=== PATIENT | male | born 1945 | race Caucasian/White ===

== ENCOUNTER 2021-09-01 12:00 | Inpatient (IN) | payer MEDICARE, SELFPAY ==
[2021-09-01] VITALS (9 sets, daily range): BP systolic 79–133; BP diastolic 59–73; PULSE 59–84; RESP 12–18; TEMP 36.1–36.5; O2SAT 95–100; BMI 26.6
--- NOTE | ~2021-09-01 | US_ITS ---
EXAMINATION: US carotid duplex BI DATE: 09/01/2021 16:49 INDICATION: Syncopal episode TECHNIQUE: Grayscale, color Doppler, and pulsed Doppler images of the cervical carotid arteries were obtained. The degree of vessel stenosis is placed in one of the following categories: normal, <50%, 5 0-69%, >=70% but less than near-occlusion, near-occlusion, or total occlusion. Note that percent sten osis relative to normal distal artery lumen diameter is indirectly measured from velocity measurement s as described by Yaya, et al. Radiology 2003; 229:340-346. COMPARISON: None. FINDINGS: RIGHT: The right common carotid artery (CCA) peak systolic velocity (PSV) is 85.3 cm/s. The right internal c arotid artery (ICA) PSV is 82.0 cm/s. The right ICA end-diastolic velocity (EDV) is 14.9 cm/s. The ri [facility] ICA/CCA PSV ratio is 0.96. Grayscale and color Doppler images yield an estimate of less than 50% diameter reduction from plaque in the ICA. The external carotid artery (ECA) PSV is 109.5 cm/s. There is antegrade flow in the right vertebral artery. LEFT: The left CCA PSV is 79.7 cm/s. The left ICA PSV is 76.5 cm/s. The left ICA EDV is 17.1 cm/s. The left ICA/CCA PSV ratio is 0.96. Grayscale and color Doppler images yield an estimate of less than 50 % di ameter reduction from plaque in the ICA. The ECA PSV is 130.8 cm/s. There is antegrade flow in the le ft vertebral artery. IMPRESSION: 1. Less than 50% stenosis in the right internal carotid artery. 2. Less than 50% stenosis in the left internal carotid artery. Reviewed, dictated and finalized at [facility]. Reviewed, dictated and finalized at location A.
--- NOTE | ~2021-09-01 | CT_ITS ---
EXAMINATION: CT brain wo con DATE: 09/02/2021 09:23 INDICATION: Syncope. TECHNIQUE: Computed tomography (CT) of the head was performed without intravenous contrast. The mA wa s adjusted according to patient size. Iterative reconstruction technique was employed. The dose-lengt h product was 681.00 mGy-cm. COMPARISON: None FINDINGS: There is a small old infarct in left cerebellum. There is a large old infarct involving rig ht frontal, parietal, and temporal lobes, right insula, and the right basal ganglia in the expected d istribution of right middle cerebral artery. There are scattered areas of low attenuation in the left -sided cerebral white matter. There is no intracranial hemorrhage, acute infarction, or abnormal intr acranial mass lesion. There is mild ex vacuo dilatation of right lateral ventricle. There is mild muc osal thickening in the paranasal sinuses. There are likely changes of ocular lens replacement surgeri es. The mastoid air cells are normal. IMPRESSION: 1. Old infarct in the expected distribution of right middle cerebral artery. 2. Small old infarct in left cerebellum. 3. Mild nonspecific cerebral white matter disease, which likely represents chronic small vessel ische evelyn disease. Reviewed, dictated and finalized at location A. IMPRESSION: 1. Old infarct in the expected distribution of right middle cerebral artery. 2. Small old infarct in left cerebellum. 3. Mild nonspecific cerebral white matter disease, which likely represents wireless team member bernice small vessel ischemic disease.
--- NOTE | ~2021-09-01 | NM_ITS ---
EXAMINATION: NM tina stress w perfusion DATE: 09/04/2021 12:59 INDICATION: Urinary artery disease with ischemic cardiomyopathy. Syncope. TECHNIQUE: Rest images were obtained following intravenous administration of 10.7 mCi Tc99m tetrofosm in (Myoview). The patient was infused intravenously with Lexiscan (Regadenoson). Then, 29.82 mCi Tc99 m tetrofosmin (Myoview) was administered intravenously, and stress images were obtained. Data was rec onstructed into short axis and horizontal and vertical long axis SPECT images. Gated SPECT images wer e also obtained. COMPARISON: None. FINDINGS: Severe perfusion defect involving the apex, apical lateral, mid inferolateral segments and apical to basilar inferior segments. This is largely nonreversible infarct with mild partially revers ible ischemia at the apical lateral and mid inferolateral segments. Borderline left ventricular enlar gement with calculated end-diastolic volume of 176 mL. There is global hypokinesis with left ventricu lar ejection fraction measuring 20%. IMPRESSION: 1. Mild reversible ischemia at the apical lateral and mid inferolateral segments on the lateral marine n of a larger fixed infarct involving the apex, apical lateral, mid inferolateral and apical to basil ar inferior segments. 2. Borderline left ventricular enlargement with global hypokinesis and moderate to severely decreased left ventricular ejection fraction measuring 20%. Reviewed, dictated and finalized at location A. IMPRESSION: 1. Mild reversible ischemia at the apical lateral and mid inferolateral segment s on the lateral margin of a larger fixed infarct involving the apex, apical la teral, mid inferolateral and apical to basilar inferior segments. 2. Borderline left ventricular enlargement with global hypokinesis and moderate to severely decreased left ventricular ejection fraction measuring 20%.
--- NOTE | ~2021-09-01 | XR_ITS ---
EXAMINATION: XR chest 2V EXAM DATE: 09/01/2021 13:16 INDICATION: Syncope TECHNIQUE: Frontal and lateral projections of the chest obtained and reviewed. There is no prior gabriela dy for comparison. FINDINGS: The lungs are clear. There are no pleural effusions. The cardiomediastinal silhouette is within normal limits. There is no pneumothorax suspected. The bones and soft tissues are unremarkab le. IMPRESSION: No acute cardiopulmonary findings. Reviewed, dictated and finalized at location B.
--- NOTE | 2021-09-01 12:14 | ECG_ITS ---
Measurements Intervals [place] Rate: 82 P: 16 IA: 214 QRS: -64 QRSD: 151 T: -11 QT: 431 QTc: 506 Interpretive Statements SINUS RHYTHM WITH FIRST DEGREE AV BLOCK INTRAVENTRICULAR CONDUCTION DELAY [130+ ms QRS DURATION] LATERAL MYOCARDIAL INFARCTION , PROBABLY OLD [40+ ms Q WAVE AND/OR ST/T ABNORMALITY IN I/aVL/V5/V6] INFERIOR MYOCARDIAL INFARCTION , OF INDETERMINATE AGE WITH POSTERIOR EXTENSION [40+ ms Q WAVE AND/OR ST/T ABNORMALITY IN II/aV ABNORMAL ECG NO PREVIOUS ECG AVAILABLE FOR COMPARISON Electronically Signed On 09-02-2021 11:39:51 CDT by Cristian Walton M.D.
--- NOTE | 2021-09-01 12:29 | ED.SYNCOPE ---
HPI - Syncope General Chief Complaint: Syncope Stated Complaint: syncope, hypotensive Time Seen by Provider: 09/01/21 12:26 Source: patient, family, EMS and RN notes reviewed Mode of arrival: EMS Limitations: no limitations History of Present Illness HPI narrative: Patient is 76 years old white male was doing physical therapy today going up and down of 2 steps. Patient was exhausted but was asked to keep doing it. Is telling me that he pushed him hard to keep doing these 2 steps then he slumped over then placed on his wheelchair and was unresponsive for about 30 seconds. His was at the scene at that time. Patient denies any chest pain, shortness of breath or dizziness prior to the syncope. Patient also denies any new symptoms after improving. Currently patient is asymptomatic. History of stroke on June 2021 with a left hemiplegia, had Holter monitor last week which showed A. fib, patient never had A. fib before. Currently patient have chronic left shoulder pain which requires medication every now and then. Patient denies any fever, chills, nausea, vomiting, chest pain, shortness of breath, back pain, headache or new neurologic deficit. Related Data Allergies Allergy/AdvReac Type Severity Reaction Status Date / Time morphine Allergy Hypotension Verified 09/01/21 13:38 Review of Systems Review of Systems: CONSTITUTIONAL: Denies fever, chills, or sweats. EYES: Denies visual changes, redness, or discharge. ENT: Denies rhinorrhea, congestion, sore throat, or otalgia. CARDIOVASCULAR: Denies chest pain, palpitations, or edema. RESPIRATORY: Denies cough or dyspnea. GASTROINTESTINAL: Denies abdominal pain, nausea, vomiting, or diarrhea. GENITOURINARY: Denies dysuria or hematuria. SKIN: Denies rash or itching. MUSCULOSKELETAL: Denies back pain, joint pain, or myalgia. NEUROLOGIC: Denies headache, numbness, or weakness. PSYCHIATRIC: Denies anxiety or depression. Exam Narrative: General appearance: Well-developed, well-nourished Skin: Normal color Head: Normocephalic, nontraumatic Eyes: Clear conjunctiva ENT: Oropharynx normal, ears normal, nose normal Neck: Supple, nontender Chest and respiratory: Airway patent, no respiratory distress, no accessory muscle use Heart: Regular rate/rhythm Abdomen: Soft, nontender, no organomegaly, quiet bowel sounds Vascular: Normal peripheral pulses, normal capillary refill. Musculoskeletal: Normal range of motion, nontender back Neurologic: Alert and oriented ?3, left hemiplegia Course Course Emergency Course: Stable Vital Signs Vital signs: Vital Signs Temperature 36.1 C L 09/01/21 12:04 Pulse Rate 84 09/01/21 12:04 Respiratory Rate 18 09/01/21 12:04 Blood Pressure 83/62 L 09/01/21 12:04 Pulse Oximetry 95 09/01/21 12:04 Temperature 36.1 C L 09/01/21 12:04 Pulse Rate 60 09/01/21 15:41 Respiratory Rate 16 09/01/21 15:41 Blood Pressure 103/62 09/01/21 15:41 Pulse Oximetry 100 09/01/21 15:41 MDM - Syncope MDM Narrative Medical decision making narrative: Patient presents with syncope. Blood pressure was low on arrival to the emergency room. Hypotension is my concern versus cardiac arrhythmia. Differential Diagnosis Differential diagnosis: Likely syncope due to orthostatic hypotension, vasovagal syncope and other (Cardiac arrhythmia) Lab Data Result diagrams: 09/01/21 12:19 09/01/21 12:19 Labs: Lab Results 09/01/21 09/01/21 09/01/21 Range/Units 12:19 12:19 12:19 WBC 11.7 H (4.5-10.0) K/mm3 RBC 4.43 L (4.6-6.20) M/mm3 Hgb 13.9 L (14.0-18.0) g/dL Hct 43.9 (42.0-52.0) % MCV 99.1 (80-100) fl MCH 31.4 (26-34)
[2021-09-01 12:34] LABS: Basophils Absolute Auto 0.1 K/mm3 (0.0-0.1); Basophils Percent Auto 0.5 % (0.2-1.2); Eosinophils Absolute Auto 0.3 K/mm3 (0-0.3); Eosinophils Percent Auto 2.3 % (0-4.4); Hematocrit 43.9 % (42.0-52.0); Hemoglobin 13.9 g/dL (14.0-18.0); Immature Granulocyte Absolute 0.05 K/mm3 (0.00-0.031); Immature Granulocyte Percent A 0.4 % (0-0.5); Lymphocytes Absolute Auto 1.52 K/mm3 (0.9-3.2); Mean Corpuscular HGB Conc 31.7 g/dl (32-36); Mean Corpuscular Hemoglobin 31.4 pg (26-34); Mean Corpuscular Volume 99.1 fl (80-100); Mean Platelet Volume 9.9 fl (7.4-10.4); Monocytes Absolute Auto 0.9 K/mm3 (0.1-0.6); Monocytes Percent Auto 7.5 % (2.6-8.5); Neutrophils Absolute Auto 8.9 K/mm3 (1.3-6.7); Neutrophils Percent Auto 76.3 % (45.5-73.1); Platelet Count Result 243 k/mm3 (150-375); Red Blood Count 4.43 M/mm3 (4.6-6.20); Red Cell Distribution Width 12.5 % (11.5-14.5); White Blood Count 11.7 K/mm3 (4.5-10.0)
[2021-09-01 12:40] LABS: Alanine Aminotransferase 81 U/L (4-50); Albumin Level 3.5 g/dL (3.5-5.1); Alkaline Phosphatase 112 U/L (38-126); Anion Gap 8 mmol/L (8-16); Aspartate Amino Transferase 65 U/L (17-59); Bilirubin,Total 0.6 mg/dL (0.2-1.3); Blood Urea Nitrogen 10 mg/dL (9-20); Calcium 8.4 mg/dL (8.4-10.2); Carbon Dioxide 27 mmol/L (22-30); Chloride 103 mmol/L (98-107); Estimated CRCL calculation 67 ml/min; Estimated Glomerular Filt Rate > 60; Glucose 121 mg/dL (65-110); Potassium 3.9 mmol/L (3.4-5.0); Sodium 138 mmol/L (137-145)
[2021-09-01] MEDS: SODIUM CHLORIDE 0.9% IV 1,000 ML 999 ML IV CONT ×2 (12:42→14:21)
[2021-09-01 13:08] LABS: CRP 1.2 mg/dL (<1.0)
[2021-09-01 13:08] LABS: Lactic Acid Reflex 2.4 mmol/L (0.7-2.1)
[2021-09-01] MEDS: HYDROcodone/acetaminophen (*CRX) 5-325 MG TABLET 1 TAB PO (13:39)
--- NOTE | 2021-09-01 15:07 | PM.IMHP ---
H&P: HPI History of Present Illness Date/Time: 09/01/21 15:07 Chief Complaint: syncope Narrative: Patient is a 76-year-old male with a past medical history of CVA, GERD, hypertension, anxiety and depression, BPH who presented to the ED for syncopal episode through therapy. Patient had a stroke back in June after total knee replacement, Which ended with him getting a thrombectomy from the brain. Patient has been working with therapy and was doing 2 steps up into steps down however he did it twice and then became very unresponsive and slumped over. He stated the staff put him back in the wheelchair so he did not fall. He did become very dizzy however he has no clue what happened because he did black out. He also stated that he got very sweaty with milky type of skin and his commented with he was ashen castro. He had just recently been on a Holter monitor which did show new onset of AFib. He also stated he is having left shoulder pain however stated he has had multiple x-ray but nothing shows with the pain is from. His did state that his blood pressure normally runs about 110 systolically however today his systolic blood pressure has been running anywhere from the 70s to 90s. Patient is being admitted to setting in observation Review of Systems Review of Systems: All systems reviewed & are unremarkable except as noted in HPI and below [facility] Past Medical History Medical History (Updated 09/01/21 @ 16:00 by NINA Pinedo) Anxiety and depression BPH (benign prostatic hyperplasia) CVA (cerebrovascular accident) GERD (gastroesophageal reflux disease) HTN (hypertension) Peripheral neuropathy Surgical History Surgical History History of vascular surgery Thrombectomy of the cerebral artery Family History Family History Sibling Acute myocardial infarction Mother Acute myocardial infarction Hypertension Diabetes mellitus Social History Social History Social History: patient is currently at [facility] performing rehab. Patient has a her name is Mandy Philip and she is his surrogate. He wishes to be a full code at this time. 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 Gender identity (if verbalized by the patient): Male Sexual Orientation (if Verbalized by the Patient): Straight or Heterosexual Spiritual care concerns: Yes Agree to blood products: No Meds Home Medications and Allergies Allergies Allergy/AdvReac Type Severity Reaction Status Date / Time morphine Allergy Hypotension Verified 09/01/21 13:38 Vital Signs Vital Signs - 24 hr 09/01/21 12:04 09/01/21 13:34 09/01/21 13:41 Temperature 97 F L Pulse Rate 84 68 78 Respiratory Rate 18 12 Blood Pressure 83/62 L 79/59 L Pulse Oximetry 95 97 Exam Const: General: cooperative, no acute distress, well developed, alert and awake Nutritional Appearance: average body habitus and well nourished Orientation/consciousness: oriented to person, oriented to place, oriented to time and patient oriented x3 Limitations: physical limitations HENMT: Head: normal to inspection Ears: hearing grossly normal bilaterally General nose exam: Normal external nose present Mouth: Yes Normal oral and palatal mucosa present, Yes lip normal and Yes tongue normal Teeth and gingiva: abnormal tooth and associated gingiva and poor dentition Eyes: General: appearance normal, both eyes and all related structures Neck: Neck: normal visual inspection, full ROM, trachea midline and supple Chest: Chest palpation &
[2021-09-01 15:13] LABS: Add Urine Microscopic? YES; Appearance Urine Clear (Clear); Bilirubin Urine 1+ (Negative); Blood Urine Negative (Negative); Color Urine Yellow (Yellow); Glucose Urine UA Negative (Negative); Ketones Urine Trace mg/dL (Negative); Leukocyte Esterase Ur Negative LEU/UL (Negative); Nitrate Urine Negative (Negative); Protein Urine Trace mg/dL (Negative); Urobilinogen Urine 0.2 mg/dL (<2.0); pH Urine 6.5 (5.0-9.0)
[2021-09-01 15:14] LABS: INR 1.2; Prothrombin Time 14.9 Seconds (11.1-14.7)
--- NOTE | 2021-09-01 15:14 | PC.NURSE ---
Spoke with keon dejesus to update patients status
[2021-09-01 15:15] LABS: Partial Thromboplastin Time 31.9 SECONDS (22.3-36.8)
[2021-09-01 15:17] LABS: Mucus Urine Rare /lpf; RBC Urine 0-2 /hpf (0-2); WBC Urine 0-3 /hpf
[2021-09-01 15:56] LABS: Reflex Lactic Acid Yes or No Add Lactic
[2021-09-01] MEDS: SODIUM CHLORIDE 0.9% IV 1,000 ML 125 ML IV CONT ×2 (16:51→22:58)
[2021-09-01 17:27] LABS: Lactic Acid 1.5 mmol/L (0.7-2.1)
--- NOTE | 2021-09-01 17:40 | ADMGEN ---
This patient, Elio Da Silva, was admitted to Medical Room 241-01. Patient/family oriented to hospital policies and general routines including ID bracelet, bed and alarms, visiting hours, pain management, procedures, bathroom and other care routines, personal items, smoking policy, room service/diet, and visiting hours. Information on how to activate the Rapid Response Team has been discussed. Patient/Family are encouraged to report perceived risks to care and to ask questions if they do not understand what they are told or what they should do.
[2021-09-01] MEDS: GABAPENTIN 300 MG CAPSULE PO (20:43)
[2021-09-01] MEDS: APIXABAN 5 MG TABLET PO (20:43)
[2021-09-01] MEDS: traZODone HCL 50 MG TABLET 100 MG PO (20:44)
[2021-09-01] MEDS: SERTRALINE HCL 50 MG TABLET 100 MG PO (20:44)
[2021-09-01] MEDS: TERAZOSIN HCL 5 MG CAPSULE 10 MG PO (20:44)
[2021-09-01] MEDS: PHENOL/SOD PHENO SPRAY CHERRY (*BKC) 1 SPRAY MUCOUS MEM (22:56)
[2021-09-02] VITALS (15 sets, daily range): BP systolic 85–151; BP diastolic 38–88; PULSE 57–85; RESP 16–18; TEMP 36.2–37; O2SAT 96–97
--- NOTE | 2021-09-02 | ECHO_ITS ---
Patient Info Name: Elio Da Silva Age: 76 years : 1945 Gender: Male Ht: 73 in Wt: 201 lbs BSA: 2.18 m2 BP: 133 / 61 mmHg Heart Rhythm: Sinus Rhythm Technical Quality: Fair Exam Date: 09/02/2021 7:53 AM Exam Location: [facility] Patient Status: Inpatient Admit Date: 09/01/2021 Staff Ordering Physician: Shawn Ashley Human Resource Analyst: Alicja Gallo RDCS Attending Provider: Marivel Mulligan Referring Physician: Dion PRECIADO; Exam Type: CA echo dop color flow w con Study Info Indications R55 - Syncope and collapse Complete two-dimensional, color flow and Doppler transthoracic echocardiogram is performed with contrast to opacify the left ventricle and to improve the deliniation of the left ventricle endocardial borders. Contrast/Agitated Saline Contrast/Ag. Saline: Definity Amount: 4.00 ml Summary 1. Left ventricular chamber dimension is mildly enlarged. 2. Left ventricular systolic function is severely reduced, estimated at 25-30%. 3. There is moderately increased left ventricular wall thickness. 4. The left ventricular diastolic function is grade I diastolic dysfunction. 5. The basal inferior wall, mid inferior wall, basal inferoseptal, mid inferoseptal, basal inferolateral wall, and mid inferolateral wall are akinetic. 6. The apex, anterior wall, anterolateral wall, and anteroseptal wall are hypokinetic. 7. Left atrial chamber dimension is moderately enlarged. 8. There is moderate mitral valve regurgitation. 9. There is mild tricuspid valve regurgitation. 10. There is mild pulmonic regurgitation. Left Ventricle Left ventricular chamber dimension is mildly enlarged. Left ventricular systolic function is severely reduced, estimated at 25-30%. There is moderately increased left ventricular wall thickness. The left ventricular diastolic function is grade I diastolic dysfunction. The basal inferior wall, mid inferior wall, basal inferoseptal, mid inferoseptal, basal inferolateral wall, and mid inferolateral wall are akinetic. The apex, anterior wall, anterolateral wall, and anteroseptal wall are hypokinetic. Right Ventricle Right ventricular chamber dimension is normal. Right ventricular systolic function is reduced. Left Atria Left atrial chamber dimension is moderately enlarged. Right Atria Right atrial chamber dimension is normal. Atrial Septum Intact interatrial septum visualized by color flow imaging. Aortic Valve The aortic valve is trileaflet. There is mild aortic valve sclerosis. There is no aortic valve stenosis. There is trace aortic valve regurgitation. Pulmonic Valve The pulmonic valve is normal. There is no pulmonic valve stenosis. There is mild pulmonic regurgitation. Mitral Valve The mitral valve has thickened leaflets. There is no mitral valve stenosis. There is moderate mitral valve regurgitation. Tricuspid Valve The tricuspid valve leaflets are normal. There is no significant tricuspid valve stenosis. There is mild tricuspid valve regurgitation. Pericardium/Pleural The pericardium appears normal. There is no pericardial effusion. Inferior Vena Cava Normal inferior vena cava with >50% collapse upon inspiration consistent with normal right atrial pressure, 5 mmHg. Aorta The aortic root size at the sinus of Valsalva is normal. Left Ventricular Outflow Tract
--- NOTE | 2021-09-02 06:39 | PM.IMPN ---
Progress Note: A&P Assessment and Plan (1) Syncope and collapse: Code(s): R55 - Syncope and collapse Status: Acute Assessment and Plan: hypotension noted with systolic blood pressure in the 70s to 80s 2 L of normal saline given in the ED continuous hydration at 125 mL/hr trend blood pressure hold antihypertensives echo is ordered noted new onset AFib orthostatic blood pressures 09/02/21: - ECHO pending still - Continue Telemetry - Continue Eliquis - Continue to trend VS and labs. - Carotid dopplers noted to be <50% occlusion bilaterally. - CXR negative. - With given Hx of CVA, will order CT scan of brain while here. - Continue to hold oral antihypertensives. (2) Transaminitis: Code(s): R74.01 - Elevation of levels of liver transaminase levels Status: Acute Assessment and Plan: AST 65 ALT 81 Hep panel in the am consider right upper quadrant ultrasound trend labs labs in a.m. 09/02/21: - Hepatitis panel pending this AM, less suspicious of Hepatitis as causation. - Likely secondary to Alirocumab utilization for reduction of cholesterol. - Trend CMP's to monitor for acute uptrend in Transaminases, and do US if occurs. (3) Hypotension: Qualifiers: Hypotension type: unspecified hypotension type Qualified Code(s): I95.9 - Hypotension, unspecified Code(s): I95.9 - Hypotension, unspecified Status: Acute Assessment and Plan: blood pressure is low 79/59 current blood pressure is 103/62 fluids given in the ED continuous fluids at 125 mL/hr trend blood pressure holding antihypertensive 09/02/21: - BP has improved, and is at baseline. - Will request orthostatic vital signs as they were not done overnight on the floor as documented. - Continue to monitor and add back home BP meds as tolerable. (4) Afib: Qualifiers: Atrial fibrillation type: unspecified Qualified Code(s): I48.91 - Unspecified atrial fibrillation Code(s): I48.91 - Unspecified atrial fibrillation Status: Acute Assessment and Plan: currently in sinus rhythm Holter monitor did show episodes of AFib currently on Eliquis which can be continued patient will need to follow up with Cardiology outpatient 09/02/21: - Continue Eliquis for anticoagulation. - Currently in NSR. Continue to monitor on telemetry. - ECHO pending. - Agree follow up with Cardiology as outpatient. Time Spent With Patient Time with patient: 15 - 25 minutes Subjective Date/time seen: 09/02/21 06:39 This pt. was examined at the bedside in interval assessment this morning after being admitted from having sustained a syncopal episode yesterday. He has been noted to have new onset A-fib recently per holter monitor and had a syncopal episode yesterday in PT, that he is undergoing since having a recent CVA. He currently denies any dizziness, lightheadedness, headache, or any CP/dyspnea. He has a pending ECHO and labs this morning. Review of Systems Review of Systems: All systems reviewed & are unremarkable except as noted in HPI and below Exam Const: General: cooperative, no acute distress, well developed, alert and awake Nutritional Appearance: average body habitus and well nourished Orientation/consciousness: oriented to person, oriented to place, oriented to time and patient oriented x3 Limitations: physical limitations HENMT: Head: normal to inspection Ears: hearing grossly normal bilaterally General nose exam: Normal external nose present Mouth: Yes Normal oral and palatal mucosa present, Yes lip normal, Yes tongue normal and Yes moist mucous membranes Teeth and gingiva: abnormal tooth and associated gingiva and poor dentition Eyes: General: appearance normal, both eyes and all related structures Pupils: Equal, round and reactive pupils present Neck: Neck: normal visual inspection, full
[2021-09-02] MEDS: SODIUM CHLORIDE 0.9% IV 1,000 ML 125 ML IV CONT ×2 (06:46→17:15)
[2021-09-02] MEDS: PERFLUTREN LIPID MICROSPHERES 1.5 ML VIAL DILUTED TO 10 ML TOTAL VOLUME IV PUSH (07:53)
[2021-09-02 08:16] LABS: Hepatitis B Surface Antigen Negative (Negative)
[2021-09-02 08:22] LABS: HAV RESULT Negative (Negative); Hepatitis B Core IgM Result Negative (Negative)
[2021-09-02 08:33] LABS: Hepatitis C Virus Antibody Negative (Negative)
[2021-09-02] MEDS: APIXABAN 5 MG TABLET PO ×2 (08:41→20:48)
[2021-09-02] MEDS: PHENOL/SOD PHENO SPRAY CHERRY (*BKC) 1 SPRAY MUCOUS MEM ×2 (14:06→20:50)
[2021-09-02] MEDS: METOPROLOL SUCCINATE EXT REL 25 MG TABCR PO (17:14)
[2021-09-02] MEDS: ISOSORBIDE MONONITRATE 30 MG TAB.ER.24H PO (17:14)
[2021-09-02] MEDS: ALPRAZolam (*CRX) 0.125 MG TABLET PO (19:49)
[2021-09-02] MEDS: SERTRALINE HCL 50 MG TABLET 100 MG PO (20:47)
[2021-09-02] MEDS: TERAZOSIN HCL 5 MG CAPSULE 10 MG PO (20:48)
[2021-09-02] MEDS: GABAPENTIN 300 MG CAPSULE PO (20:48)
[2021-09-02] MEDS: traZODone HCL 50 MG TABLET 100 MG PO (20:49)
[2021-09-02] MEDS: MENTHOL 10% / METHYL SALICYLATE 15% 57 GM TUBE 1 APPLIC TOPICAL (22:33)
[2021-09-03] VITALS (14 sets, daily range): BP systolic 122–161; BP diastolic 68–92; PULSE 59–75; RESP 15–16; TEMP 36.6–36.9; O2SAT 96–97
[2021-09-03] MEDS: SODIUM CHLORIDE 0.9% IV 1,000 ML 125 ML IV CONT ×3 (00:34→18:09)
--- NOTE | 2021-09-03 07:20 | PM.IMPN ---
Progress Note: A&P Assessment and Plan (1) Syncope and collapse: Code(s): R55 - Syncope and collapse Status: Acute Assessment and Plan: -EKG showed old lateral and inferior MIs of indeterminate age an intraventricular conduction delay with first-degree AV block. telemetry continues to show first-degree heart block and sinus dysrhythmia. -Carotid ultrasound showed less than 50% Stenosis bilaterally. -CT head showed old infarct in the right MCA and small old infarct in the left cerebellum along with chronic small-vessel ischemic disease. -Chest x-ray showed no acute cardiopulmonary abnormalities. -Echo showed intact interatrial septum and LV EF at 25-30%. - White blood cell count has normalized from yesterday. Blood cultures show no growth today. -His blood pressure had normalized yesterday afternoon and he was restarted on his home antihypertensive regimen, however he had episode of hypotension in the 80s over 40s late in the evening after standing from sitting. -He is normotensive this morning prior to any medications. UA with bilirubin 1+ and hyaline casts 3-4 per lpf. This may be orthostatic hypotension in combination with HFrEF and his AV block/ intraventricular conduction delay, will obtain orthostatics today, discontinue alpha-evan, decrease metoprolol, consult Cardiology. Cardiology advised patient will undergo stress test here prior to discharge, and will likely need a LifeVest upon discharge. Continue nitrates, per cardiology, hold terazosin. Decrease metoprolol from 25-12.5 this morning due to hypotension. Orthostatics today. (2) Heart failure: Code(s): I50.9 - Heart failure, unspecified Status: Acute Assessment and Plan: Due to Ischemic Cardiomyopathy, per cardiology. 09/02 echo showed LVEF 25-30% left ventricular diastolic dysfunction basal inferior wall mid inferior wall, basal inferior septal, mid inferoseptal, basal inferior lateral wall, and mid inferior lateral wall are akinetic. Hypokinesis at the apex, anterior wall, anterior lateral wall. Moderate mitral valve regurg, mild tricuspid and pulmonic valve regurgitation. Intact interatrial septum. TSH & magnesium within normal limits. Plan as above in (Syncope and Collapse) (3) CAD (coronary artery disease): Code(s): I25.10 - Atherosclerotic heart disease of [place] coronary artery without angina pectoris Status: Acute Assessment and Plan: Per cardiology, patient's primary concrete fence builder is at [facility]. Coronary angiogram 2017 showed EF of 45% posterior basal akinesis as well as diaphragmatic akinesis. 30% left main, 30% proximal ramus, 50% large OM 2, total occlusion of the RCA with [id number] collaterals. Diffuse LAD disease. Continue aspirin, isosorbide, metoprolol, PCSK9 inhibitor. (4) Afib: Qualifiers: Atrial fibrillation type: unspecified Qualified Code(s): I48.91 - Unspecified atrial fibrillation Code(s): I48.91 - Unspecified atrial fibrillation Status: Acute Assessment and Plan: Patient reportedly had a recent Holter monitor which showed atrial fibrillation. He is currently on Eliquis 5 mg p.o. b.i.d. daily. he is not currently in AFib. Continue telemetry Continue Eliquis (5) Transaminitis: Code(s): R74.01 - Elevation of levels of liver transaminase levels Status: Acute Assessment and Plan: AST (65), ALT (81). Hepatitis panel negative. Subjective Date/time seen: 09/03/21 07:20 76-year-old male with past medical history of coronary artery disease, AFib on Eliquis, ischemic cardiomyopathy, CVA ( June 2021) who presented to us for syncopal episode during physical therapy for his CVA. He reports he is feeling well today, no shortness of breaths, no dizziness, no chest pain, urine or stool changes, and no syncopal episodes. He is very happy with his care here, And enjoys the food. Hugo
[2021-09-03 07:45] LABS: Basophils Absolute Auto 0.1 K/mm3 (0.0-0.1); Basophils Percent Auto 1.1 % (0.2-1.2); Eosinophils Absolute Auto 0.4 K/mm3 (0-0.3); Eosinophils Percent Auto 6.2 % (0-4.4); Immature Granulocyte Absolute 0.01 K/mm3 (0.00-0.031); Immature Granulocyte Percent A 0.2 % (0-0.5); Lymphocytes Absolute Auto 1.38 K/mm3 (0.9-3.2); Lymphocytes Percent Auto 21.8 % (18.3-44.2); Mean Corpuscular HGB Conc 32.5 g/dl (32-36); Mean Corpuscular Hemoglobin 31.6 pg (26-34); Mean Corpuscular Volume 97.3 fl (80-100); Mean Platelet Volume 9.8 fl (7.4-10.4); Monocytes Absolute Auto 0.7 K/mm3 (0.1-0.6); Monocytes Percent Auto 10.9 % (2.6-8.5); Neutrophils Absolute Auto 3.8 K/mm3 (1.3-6.7); Neutrophils Percent Auto 59.8 % (45.5-73.1); Platelet Count Result 218 k/mm3 (150-375); Red Blood Count 4.11 M/mm3 (4.6-6.20); Red Cell Distribution Width 12.6 % (11.5-14.5); White Blood Count 6.3 K/mm3 (4.5-10.0)
[2021-09-03 07:55] LABS: Alanine Aminotransferase 50 U/L (4-50); Albumin Level 3.4 g/dL (3.5-5.1); Alkaline Phosphatase 94 U/L (38-126); Anion Gap 4 mmol/L (8-16); Aspartate Amino Transferase 32 U/L (17-59); Bilirubin,Total 0.5 mg/dL (0.2-1.3); Blood Urea Nitrogen 6 mg/dL (9-20); Calcium 8.4 mg/dL (8.4-10.2); Carbon Dioxide 25 mmol/L (22-30); Chloride 109 mmol/L (98-107); Estimated CRCL calculation 97 ml/min; Estimated Glomerular Filt Rate > 60; Glucose 95 mg/dL (65-110); Magnesium 1.8 mg/dL (1.6-2.3); Potassium 3.6 mmol/L (3.4-5.0); Sodium 138 mmol/L (137-145)
[2021-09-03] MEDS: APIXABAN 5 MG TABLET PO ×2 (09:07→20:44)
[2021-09-03] MEDS: METOPROLOL SUCCINATE EXT REL 12.5 MG TABCR PO (09:07)
--- NOTE | 2021-09-03 09:36 | PM.CNCAR ---
Assessment and Plan Assessment and plan (1) CAD (coronary artery disease): Code(s): I25.10 - Atherosclerotic heart disease of [place] coronary artery without angina pectoris Status: Acute Assessment and Plan: Coronary angiogram 2017 showed EF of 45% posterior basal akinesis as well as diaphragmatic akinesis. 30% left main, 30% proximal ramus, 50% large OM 2, total occlusion of the RCA with qran-qc-oldox collaterals. Diffuse LAD disease. Continue aspirin, isosorbide, metoprolol, PCSK9 inhibitor. (2) Syncope and collapse: Code(s): R55 - Syncope and collapse Status: Acute Assessment and Plan: Concerning for arrhythmogenic etiology given his poor EF. Cannot exclude orthostasis either. Will check orthostatic BP's. Will likely need a LifeVest upon discharge. Will need follow-up at [facility] including evaluation by electrophysiology (3) Ischemic cardiomyopathy: Code(s): I25.5 - Ischemic cardiomyopathy Status: Acute Assessment and Plan: Worsening cardiomyopathy. Likely needs coronary angiogram he is on anticoagulation. His primary engineer systems is at [facility]. Will proceed with a Lexiscan myocardial perfusion study for ischemic evaluation to assist in determining need for invasive workup here versus follow-up with his primary engineer systems and further workup at [facility]. (4) Chronic systolic (congestive) heart failure: Code(s): I50.22 - Chronic systolic (congestive) heart failure Status: Acute Assessment and Plan: BP is soft. At LISBETH-inhibitor/Arb as able (5) Paroxysmal atrial fibrillation: Code(s): I48.0 - Paroxysmal atrial fibrillation Status: Acute Assessment and Plan: On anticoagulation. In sinus rhythm at this point (6) Chronic anticoagulation: Code(s): Z79.01 - correction (current) use of anticoagulants Status: Acute Assessment and Plan: No active bleeding problems (7) Recent cerebrovascular accident (CVA): Code(s): Z86.73 - Personal history of transient ischemic attack (TIA), and cerebral infarction without residual deficits Status: Acute (8) Electrolyte abnormality: Code(s): E87.8 - Other disorders of electrolyte and fluid balance, not elsewhere classified Status: Acute Assessment and Plan: Potassium and magnesium are both low normal. Will place potassium 40 mEq p.o. x1 as well as 2 g IV magnesium today. History of Present Illness History of Present Illness Consult date/time: 09/03/21 09:36 Requesting physician: Marivel Mulligan APN-C Consult reason: Other (Syncope, low EF) Reason For Visit: Hypotension syncope Narrative: Reason for consultation: Syncope, low EF Date of service 09/03/2021 Requesting provider: Marivel Mulligan History patient is 76-year-old male who follows with Dr. Owens at [facility]. He has a history of known CAD in previous non-STEMI. He had been stable up until the time of a knee surgery in June of this year. He had it knee replacement. Shortly thereafter while working with therapy he had a severe stroke resulting in thrombectomy. This was performed at [place]. He did have a echocardiogram at [place] showing ejection fraction 45%. Outpatient monitor was also warned showing atrial fibrillation. Ejection fraction as dictated above showing EF 45% with inferior and inferolateral hypokinesis. Negative bubble study. Patient is on anticoagulation because both of a DVT and the atrial fibrillation and history of stroke. He came to this hospital because of a syncopal episode. Patient was at [facility] participating in rehab when he was doing some climbing of steps. He felt palpitations and passed out. Uncertain duration of unconsciousness but he medially was aware of his surroundings upon awakening. He has had no chest pain, shortness of breath, paroxysmal nocturnal dyspnea, orthopnea, edema. He does describe some occasional palpitations. Workup performed here inclu
[2021-09-03] MEDS: POTASSIUM CHLORIDE 20 MEQ TABLET 40 MEQ PO (10:12)
[2021-09-03] MEDS: MAGNESIUM SULF 2 GM/WATER 50ML 2 GM/50 ML BAG IVPB (10:12)
[2021-09-03] MEDS: LORazepam (*CRX) 0.5 MG TABLET PO (16:27)
--- NOTE | 2021-09-03 20:16 | PC.NURSE ---
pt voided 90ml, post residual shows 288ml max
[2021-09-03] MEDS: GABAPENTIN 300 MG CAPSULE PO (20:44)
[2021-09-03] MEDS: SERTRALINE HCL 50 MG TABLET 100 MG PO (20:44)
[2021-09-03] MEDS: traZODone HCL 50 MG TABLET 100 MG PO (20:44)
[2021-09-04] VITALS (15 sets, daily range): BP systolic 117–164; BP diastolic 74–94; PULSE 57–97; RESP 16–18; TEMP 36.6–36.8; O2SAT 96–99
[2021-09-04] MEDS: SODIUM CHLORIDE 0.9% IV 1,000 ML 125 ML IV CONT ×2 (02:09→12:44)
--- NOTE | 2021-09-04 07:25 | PM.IMPN ---
Progress Note: A&P Assessment and Plan (1) Syncope and collapse: Code(s): R55 - Syncope and collapse Status: Acute Assessment and Plan: Likely due to significantly reduced ejection fraction secondary to ischemic cardiomyopathy. EKG showed sinus rhythm with first-degree AV block and intraventricular conduction delay. CT head showed old infarct in the right MCA and small old infarct in the left cerebellum along with chronic small-vessel ischemic disease. Carotid ultrasound showed less than 50% stenosis bilaterally. Chest x-ray showed no acute cardiopulmonary abnormalities. Echo showed intact interatrial septum and LVEF at 25-30%. White blood cell count has normalized from yesterday. Blood cultures show no growth today. BP stable today, orthostatics normal. Continue nitrates, per cardiology, hold terazosin. Metoprolol advanced to 25/ home dose this AM. Will discharge with LiveVest, defer to cardiology. Continue to monitor vital signs (2) Heart failure: Code(s): I50.9 - Heart failure, unspecified Status: Acute Assessment and Plan: Due to Ischemic Cardiomyopathy, per cardiology. Patient is euvolemic currently, and without acute exacerbation. 09/04 Lexiscan stress test showed Mild reversible ischemia at the apical lateral and mid inferior lateral segments on the lateral margin of the larger fixed infarct involving the apex, apical lateral, mid inferior lateral, and apical to basilar inferior segments. Borderline left ventricular enlargement with global hypokinesis and LVEF of 20% 09/02 Echo showed LVEF 25-30% left ventricular diastolic dysfunction basal inferior wall mid inferior wall, basal inferior septal, mid inferoseptal, basal inferior lateral wall, and mid inferior lateral wall are akinetic. Hypokinesis at the apex, anterior wall, anterior lateral wall. Moderate mitral valve regurg, mild tricuspid and pulmonic valve regurgitation. Intact interatrial septum. TSH & magnesium within normal limits. 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 Coronary angiogram 2016 showed EF of 45% posterior basal akinesis as well as diaphragmatic akinesis. 30% left main, 30% proximal ramus, 50% large OM 2, total occlusion of the RCA with [id number]-mt-[id number] collaterals. Diffuse LAD disease. Continue aspirin, isosorbide, metoprolol, PCSK9 inhibitor. Plan as above. (4) Afib: Qualifiers: Atrial fibrillation type: unspecified Qualified Code(s): I48.91 - Unspecified atrial fibrillation Code(s): I48.91 - Unspecified atrial fibrillation Status: Acute Assessment and Plan: Patient reportedly had a recent Holter monitor which showed atrial fibrillation. He is currently on Eliquis 5 mg p.o. b.i.d. daily. telemetry reviewed: NSR. Continue telemetry Continue Eliquis (5) Transaminitis: Code(s): R74.01 - Elevation of levels of liver transaminase levels Status: Acute Assessment and Plan: Transaminases normalized today. Hepatitis panel negative. Will continue to monitor Subjective Date/time seen: 09/04/21 07:25 Mr. Da Silva was evaluated at bedside today, and his was also in the room. He had his stress test today. He denies chest pain, shortness of breath, difficulty breathing, orthopnea, lower extremity swelling, dizziness, or syncope. He had questions regarding the LifeVest and his Lexiscan stress test, which I will defer to cardiology. Review of Systems Review of Systems: All systems reviewed & are unremarkable except as noted in HPI and below Exam Narrative: GENERAL APPEARANCE: Alert and oriented x 3, in no apparent distress. HEENT: PERRL, EOMI. Sclerae anicter
[2021-09-04] MEDS: APIXABAN 5 MG TABLET PO ×2 (08:10→20:04)
[2021-09-04] MEDS: METOPROLOL SUCCINATE EXT REL 25 MG TABCR PO (08:10)
[2021-09-04] MEDS: ACETAMINOPHEN 500 MG TABLET 1000 MG PO (08:12)
--- NOTE | 2021-09-04 08:51 | EST_ITS ---
Patient Info Name: Elio Da Silva Age: 76 years : 1945 Gender: Male Ht: 73 in Wt: 201 lbs BSA: 2.18 m2 Exam Date: 09/04/2021 11:19 AM Exam Location: [facility] Stress Patient Status: Inpatient Admit Date: 09/02/2021 Staff Ordering Physician: Cristian Walton MD Attending Provider: Lucretia Newberry PA-C Exercise Technologist: Queta Delcid RDCS Nurse: JENNIFER OCONNELL NP Exam Type: CA stress tina w NM Study Info Indications - CAD I42.9 - Cardiomyopathy, unspecified R55 - Syncope and collapse A regadenoson stress test was performed. Summary 1. Sinus rhythm with right bundle branch block and left posterior fascicular block. 2. No additional ST or T changes following injection of Lexiscan. 3. None. 4. Clinically and electrocardiographically negative Lexiscan stress test. 5. Myocardial perfusion imaging exam to be dictated by the Radiology Department. Protocol: Lexiscan Stress ECG Details Stage: REST Duration (min): 3 min : 17 sec HR (bpm): 55 SBP (mmHg): --- DBP (mmHg): --- Stage: REST Duration (min): 4 min : 23 sec HR (bpm): 56 SBP (mmHg): --- DBP (mmHg): --- Stage: REST Duration (min): 4 min : 40 sec HR (bpm): 53 SBP (mmHg): 149 DBP (mmHg): 99 Stage: REST Duration (min): 10 min : 45 sec HR (bpm): 59 SBP (mmHg): 149 DBP (mmHg): 99 Stage: STAGE 1 Duration (min): 1 min : 0 sec HR (bpm): 72 SBP (mmHg): 149 DBP (mmHg): 99 Stage: RECOVERY Duration (min): 1 min : 0 sec HR (bpm): 84 SBP (mmHg): 166 DBP (mmHg): 60 Stage: RECOVERY Duration (min): 2 min : 0 sec HR (bpm): 79 SBP (mmHg): 138 DBP (mmHg): 74 Stage: RECOVERY Duration (min): 3 min : 0 sec HR (bpm): 75 SBP (mmHg): 138 DBP (mmHg): 77 Stage: RECOVERY Duration (min): 4 min : 0 sec HR (bpm): 73 SBP (mmHg): 138 DBP (mmHg): 77 Stage: RECOVERY Duration (min): 5 min : 0 sec HR (bpm): 71 SBP (mmHg): 138 DBP (mmHg): 77 Stage: RECOVERY Duration (min): 5 min : 47 sec HR (bpm): 71 SBP (mmHg): 135 DBP (mmHg): 81 Rest HR: 59 bpm Peak HR: 85 bpm Rest Sys BP: 149 mmHg Peak Sys BP: 166 mmHg Max Pred HR: 142 bpm % Max Pred HR: 60 % Target HR: 121 bpm Max RPP: 14,110 bpm*mmHg Termination Reason: Completed protocol Cardiac Symptoms: None Total Time: 1 min : 0 sec Rest Garcia BP: 99 mmHg Peak Garcia BP: 60 mmHg Total Dose: 0.4 mg Resting ECG Sinus rhythm with right bundle branch block and left posterior fascicular block. Stress ECG No additional ST or T changes following injection of Lexiscan. Arrhythmias None. Report Signatures
--- NOTE | 2021-09-04 10:30 | PCOTNOTE ---
Attempted to see patient this am, however patient off floor for testing/procedure at this time.
--- NOTE | 2021-09-04 11:43 | PM.PNCARD ---
Progress Note: A&P Assessment and Plan (1) CAD (coronary artery disease): Code(s): I25.10 - Atherosclerotic heart disease of [place] coronary artery without angina pectoris <NINA Adhikari - Last Filed: 09/04/21 16:02> Status: Acute <NINA Adhikari - Last Filed: 09/04/21 16:02> Assessment and Plan: Coronary angiogram 2017 showed EF of 45% posterior basal akinesis as well as diaphragmatic akinesis. 30% left main, 30% proximal ramus, 50% large OM 2, total occlusion of the RCA with ocfc-pk-rkwvu collaterals. Diffuse LAD disease. Continue aspirin, isosorbide, metoprolol, PCSK9 inhibitor. <NINA Adhikari - Last Filed: 09/04/21 16:02> (2) Syncope and collapse: Code(s): R55 - Syncope and collapse <NINA Adhikari - Last Filed: 09/04/21 16:02> Status: Acute <NINA Adhikari - Last Filed: 09/04/21 16:02> Assessment and Plan: Concerning for arrhythmogenic etiology given his poor EF. Cannot exclude orthostasis either. Borderline orthostatic HoTN LifeVest upon discharge. follow-up at [facility] including evaluation by electrophysiology <NINA Adhikari - Last Filed: 09/04/21 16:02> (3) Ischemic cardiomyopathy: Code(s): I25.5 - Ischemic cardiomyopathy <NINA Adhikari - Last Filed: 09/04/21 16:02> Status: Acute <NINA Adhikari - Last Filed: 09/04/21 16:02> Assessment and Plan: Worsening cardiomyopathy. Likely needs coronary angiogram but he is on anticoagulation. His primary enterer is at [facility]. Underwent lexiscan stress test today. Will leave further recommendations after review of those results. His recent echo showed decline in EF to 25%. The concept of a LifeVest was discussed with him and he would like to proceed with this. Order has been placed. <NINA Adhikari - Last Filed: 09/04/21 16:02> (4) Chronic systolic (congestive) heart failure: Code(s): I50.22 - Chronic systolic (congestive) heart failure <NINA Adhikari - Last Filed: 09/04/21 16:02> Status: Acute <NINA Adhikari - Last Filed: 09/04/21 16:02> Assessment and Plan: As above. He appears to be well compensated at this time. Continue medical therapy Will add Entresto since BP has been stable, a bit hypertensive at times. Low sodium diet CHF counseling <NINA Adhikari - Last Filed: 09/04/21 16:02> (5) Paroxysmal atrial fibrillation: Code(s): I48.0 - Paroxysmal atrial fibrillation <NINA Adhikari - Last Filed: 09/04/21 16:02> Status: Acute <NINA Adhikari - Last Filed: 09/04/21 16:02> Assessment and Plan: On anticoagulation. Currently in sinus rhythm. <NINA Adhikari - Last Filed: 09/04/21 16:02> (6) Chronic anticoagulation: Code(s): Z79.01 - [facility] (current) use of anticoagulants <NINA Adhikari - Last Filed: 09/04/21 16:02> Status: Acute <NINA Adhikari - Last Filed: 09/04/21 16:02> Assessment and Plan: No active bleeding problems <NINA Adhikari - Last Filed: 09/04/21 16:02> (7) Recent cerebrovascular accident (CVA): Code(s): Z86.73 - Personal history of transient ischemic attack (TIA), and cerebral infarction without residual deficits <NINA Adhikari - Last Filed: 09/04/21 16:02> Status: Acute <NINA Adhikari - Last Filed: 09/04/21 16:02> Assessment and Plan: Residual L facial droop and L upper extremity weaknes <NINA Adhikari - Last Filed: 09/04/21 16:02> (8) Electrolyte abnormality: Code(s): E87.8 - Other disorders of electrolyte and fluid balance, not elsewhere classified <NINA Adhikari - Last Filed: 09/04/21 16:02> Status: Acute <NINA Adhikari - Last Filed: 09/04/21 16:02> Assessment and Plan: K+
[2021-09-04 12:45] LABS: Anion Gap 7 mmol/L (8-16); Blood Urea Nitrogen 5 mg/dL (9-20); Calcium 8.4 mg/dL (8.4-10.2); Carbon Dioxide 22 mmol/L (22-30); Chloride 107 mmol/L (98-107); Estimated CRCL calculation 97 ml/min; Estimated Glomerular Filt Rate > 60; Glucose 96 mg/dL (65-110); Potassium 4.4 mmol/L (3.4-5.0); Sodium 136 mmol/L (137-145)
[2021-09-04] MEDS: SERTRALINE HCL 50 MG TABLET 100 MG PO (16:21)
[2021-09-04] MEDS: SACUBITRIL/VALSARTAN 24-26 MG TABLET 1 TAB PO (20:04)
[2021-09-04] MEDS: traZODone HCL 50 MG TABLET 100 MG PO (20:04)
[2021-09-04] MEDS: GABAPENTIN 300 MG CAPSULE PO (20:04)
[2021-09-05] VITALS (15 sets, daily range): BP systolic 93–140; BP diastolic 64–82; PULSE 58–104; RESP 14–17; TEMP 36.3–37.1; O2SAT 96–97
[2021-09-05] MEDS: ACETAMINOPHEN 500 MG TABLET 1000 MG PO ×3 (00:24→20:24)
[2021-09-05 06:01] LABS: Anion Gap 6 mmol/L (8-16); Blood Urea Nitrogen 8 mg/dL (9-20); Calcium 8.5 mg/dL (8.4-10.2); Carbon Dioxide 25 mmol/L (22-30); Chloride 103 mmol/L (98-107); Estimated CRCL calculation 85 ml/min; Estimated Glomerular Filt Rate > 60; Glucose 97 mg/dL (65-110); Potassium 3.8 mmol/L (3.4-5.0); Sodium 134 mmol/L (137-145)
[2021-09-05] MEDS: POTASSIUM CHLORIDE 20 MEQ TABLET PO (08:00)
[2021-09-05] MEDS: ASPIRIN 81 MG CHEWABLE TABLET PO (08:00)
[2021-09-05] MEDS: APIXABAN 5 MG TABLET PO ×2 (08:53→20:21)
[2021-09-05] MEDS: SACUBITRIL/VALSARTAN 24-26 MG TABLET 1 TAB PO ×2 (08:53→20:21)
[2021-09-05] MEDS: METOPROLOL SUCCINATE EXT REL 25 MG TABCR PO (08:53)
[2021-09-05] MEDS: ISOSORBIDE MONONITRATE 30 MG TAB.ER.24H PO (08:53)
--- NOTE | 2021-09-05 10:18 | PM.PNCARD ---
Progress Note: A&P Assessment and Plan (1) CAD (coronary artery disease): Code(s): I25.10 - Atherosclerotic heart disease of [place] coronary artery without angina pectoris <NINA Adhikari - Last Filed: 09/05/21 12:11> Status: Acute <NINA Adhikari - Last Filed: 09/05/21 12:11> Assessment and Plan: Coronary angiogram 2017 showed EF of 45% posterior basal akinesis as well as diaphragmatic akinesis. 30% left main, 30% proximal ramus, 50% large OM 2, total occlusion of the RCA with [id number]-xf-xrbmw collaterals. Diffuse LAD disease. Continue aspirin, metoprolol, PCSK9 inhibitor. <NINA Adhikari - Last Filed: 09/05/21 12:11> (2) Syncope and collapse: Code(s): R55 - Syncope and collapse <NINA Adhikari - Last Filed: 09/05/21 12:11> Status: Acute <NINA Adhikari - Last Filed: 09/05/21 12:11> Assessment and Plan: Concerning for arrhythmogenic etiology given his poor EF. Cannot exclude orthostasis either. Borderline orthostatic HoTN Mild, asymptomatic orthostatic hypotension this morning. Will d/c isosorbide and observe response. Continue Entresto 24-[address] follow-up at [facility] including evaluation by electrophysiology <NINA Adhikari - Last Filed: 09/05/21 12:11> (3) Ischemic cardiomyopathy: Code(s): I25.5 - Ischemic cardiomyopathy <NINA Adhikari - Last Filed: 09/05/21 12:11> Status: Acute <NINA Adhikari - Last Filed: 09/05/21 12:11> Assessment and Plan: Worsening cardiomyopathy. Likely needs coronary angiogram but he is on anticoagulation. His primary bias binding folder is at [facility]. Underwent lexiscan stress test yesterday with evidence of izzy-infarct ischemia. No further work up in this regard. His recent echo showed decline in EF to 25%. Optimize medical therapy prior to discharge, he has been fitted for his LifeVest <NINA Adhikari - Last Filed: 09/05/21 12:11> (4) Chronic systolic (congestive) heart failure: Code(s): I50.22 - Chronic systolic (congestive) heart failure <NINA Adhikari - Last Filed: 09/05/21 12:11> Status: Acute <NINA Adhikari - Last Filed: 09/05/21 12:11> Assessment and Plan: As above. He appears to be well compensated at this time. Continue medical therapy with entresto, metoprolol Can consider addition of SGLT2 inhibitor Low sodium diet CHF counseling <NINA Adhikari - Last Filed: 09/05/21 12:11> (5) Paroxysmal atrial fibrillation: Code(s): I48.0 - Paroxysmal atrial fibrillation <NINA Adhikari - Last Filed: 09/05/21 12:11> Status: Acute <NINA Adhikari - Last Filed: 09/05/21 12:11> Assessment and Plan: On anticoagulation. Currently in sinus rhythm. 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 <NINA Adhikari - Last Filed: 09/05/21 12:11> Status: Acute <NINA Adhikari - Last Filed: 09/05/21 12:11> Assessment and Plan: No active bleeding problems <NINA Adhikari - Last Filed: 09/05/21 12:11> (7) Recent cerebrovascular accident (CVA): Code(s): Z86.73 - Personal history of transient ischemic attack (TIA), and cerebral infarction without residual deficits <NINA Adhikari - Last Filed: 09/05/21 12:11> Status: Acute <NINA Adhikari - Last Filed: 09/05/21 12:11> Assessment and Plan: Residual L facial droop and L upper extremity weaknes <NINA Adhikari - Last Filed: 09/05/21 12:11> (8) Electrolyte abnormality: Code(s): E87.8 - Other disorders of electrolyte and fluid balance, not elsewhere classified <NINA Adhikari - Last Filed: 09/05/21 12:11> Status: Acute <Faith Souza,
--- NOTE | 2021-09-05 10:47 | PM.IMPN ---
Progress Note: A&P Assessment and Plan (1) Syncope and collapse: Code(s): R55 - Syncope and collapse Status: Acute Assessment and Plan: Likely due to significantly reduced ejection fraction secondary to ischemic cardiomyopathy. EKG showed sinus rhythm with first-degree AV block and intraventricular conduction delay. CT head showed old infarct in the right MCA and small old infarct in the left cerebellum along with chronic small-vessel ischemic disease. Carotid ultrasound showed less than 50% stenosis bilaterally. Chest x-ray showed no acute cardiopulmonary abnormalities. Echo showed intact interatrial septum and LVEF at 25-30%.Blood cultures show no growth today. BP soft today with standing with a 32 point drop from supine to standing. Cardiology wants to adjust medications and continue to monitor for today. Appreciate Cardiology input. (2) Heart failure: Code(s): I50.9 - Heart failure, unspecified Status: Acute Assessment and Plan: Patient here for syncope. 09/02 Echo showed LVEF 25-30% left ventricular diastolic dysfunction basal inferior wall mid inferior wall, basal inferior septal, mid inferoseptal, basal inferior lateral wall, and mid inferior lateral wall are akinetic. Hypokinesis at the apex, anterior wall, anterior lateral wall. Moderate mitral valve regurg, mild tricuspid and pulmonic valve regurgitation. Intact interatrial septum. Cardiology consulted and medications adjusted. 09/04 Lexiscan stress test showed Mild reversible ischemia at the apical lateral and mid inferior lateral segments on the lateral margin of the larger fixed infarct involving the apex, apical lateral, mid inferior lateral, and apical to basilar inferior segments. Borderline left ventricular enlargement with global hypokinesis and LVEF of 20% Due to Ischemic Cardiomyopathy. TSH & magnesium within normal limits. Potassium <4.0 so will replace. Patient is euvolemic currently and without acute exacerbation. Medications being adjusted. Patient has been fitted for a LifeVest. 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 Coronary angiogram 2017 showed EF of 45% posterior basal akinesis as well as diaphragmatic akinesis with 30% left main, 30% proximal ramus, 50% large OM 2, total occlusion of the RCA with [id number] collaterals and diffuse LAD disease. Stress test as above. Continue aspirin, metoprolol and PCSK9 treatment. Imdur to be decreased due to soft BP. (5) Afib: Qualifiers: Atrial fibrillation type: unspecified Qualified Code(s): I48.91 - Unspecified atrial fibrillation Code(s): I48.91 - Unspecified atrial fibrillation Status: Acute Assessment and Plan: Patient reportedly had a recent Holter monitor which showed paroxysmal atrial fibrillation. He is currently on Eliquis 5 mg p.o. b.i.d. Telemetry reviewed in remains in normal sinus rhythm. Continue Toprol. Continue Eliquis. (6) Transaminitis: Code(s): R74.01 - Elevation of levels of liver transaminase levels Status: Acute Assessment and Plan: Transaminases normalized today. Hepatitis panel negative. [place] related to the CHF. Continue to monitor. (7) DVT prophylaxis: Code(s): Z29.9 - Encounter for prophylactic measures, unspecified Status: Acute Assessment and Plan: Eliquis Subjective Date/time seen: 09/05/21 10:47 Interval history: 76yo male with AFib and hx of CVA here for syncope. Assuming care. Chart reviewed. Patient denies any chest pain shortness of breath. He slept poorly but thinks it is related anxiety. He has been up walking to
[2021-09-05] MEDS: SERTRALINE HCL 50 MG TABLET 100 MG PO (15:37)
[2021-09-05] MEDS: SIMETHICONE 80 MG TAB.CHEW PO (18:52)
[2021-09-05] MEDS: PHENOL/SOD PHENO SPRAY CHERRY (*BKC) 1 SPRAY MUCOUS MEM (20:21)
[2021-09-05] MEDS: traZODone HCL 50 MG TABLET 100 MG PO (20:21)
[2021-09-05] MEDS: GABAPENTIN 300 MG CAPSULE PO (20:21)
[2021-09-06] VITALS (7 sets, daily range): BP systolic 130–151; BP diastolic 65–90; PULSE 60–74; RESP 16; TEMP 36.4; O2SAT 93
[2021-09-06 04:49] LABS: Hemoglobin 14.7 g/dL (14.0-18.0); Mean Corpuscular HGB Conc 32.7 g/dl (32-36); Mean Corpuscular Hemoglobin 31.9 pg (26-34); Mean Corpuscular Volume 97.6 fl (80-100); Mean Platelet Volume 9.9 fl (7.4-10.4); Platelet Count Result 258 k/mm3 (150-375); Red Blood Count 4.61 M/mm3 (4.6-6.20); Red Cell Distribution Width 12.6 % (11.5-14.5); White Blood Count 5.8 K/mm3 (4.5-10.0)
[2021-09-06 05:08] LABS: Anion Gap 5 mmol/L (8-16); Blood Urea Nitrogen 8 mg/dL (9-20); Calcium 8.6 mg/dL (8.4-10.2); Carbon Dioxide 26 mmol/L (22-30); Chloride 106 mmol/L (98-107); Estimated CRCL calculation 85 ml/min; Estimated Glomerular Filt Rate > 60; Glucose 99 mg/dL (65-110); Phosphorus 4.3 mg/dL (2.5-4.5); Sodium 137 mmol/L (137-145)
[2021-09-06] MEDS: SODIUM CHLORIDE 0.9% IV 1,000 ML 100 ML IV CONT (06:07)
[2021-09-06] MEDS: APIXABAN 5 MG TABLET PO (08:26)
[2021-09-06] MEDS: METOPROLOL SUCCINATE EXT REL 25 MG TABCR PO (08:26)
[2021-09-06] MEDS: SACUBITRIL/VALSARTAN 24-26 MG TABLET 1 TAB PO (08:27)
[2021-09-06] MEDS: ASPIRIN 81 MG CHEWABLE TABLET PO (08:27)
--- NOTE | 2021-09-06 09:00 | PM.PNCARD ---
Progress Note: A&P Additional Plan 76-year-old man with coronary artery disease significant ischemic cardiomyopathy at this point stable on current medical regimen. He appears to be a reasonable candidate for discharge from my perspective. Plans at this time are for short interval follow-up with his established physicians at [facility] so that follow-up angiography can be performed/ considered at that institution. No clinical or urgent reason to proceed with high-risk revascularization at [place]. Claude Orellana MD [facility] Subjective Date/time seen: date of service:09/06/21 09:00 Interval history: Follow-up visit in this 76-year-old man with: History of ischemic heart disease has relatively severe ischemic cardiomyopathy at this point. Admitted to the hospital with a syncopal episode and fall in a rehab facility. He was found to have a significant reduction in LV systolic function compared to previous records. Has been started on Entresto and supplied with a life vest device. Otherwise he is on appropriate guideline directed medical therapy. Patient is anticipating discharge back to rehab facility and ultimately will follow up with his established silo erector at [facility] regarding ongoing evaluation of his underlying coronary disease. Discussion with the patient this morning about that plan and he understands this and agrees. No symptoms today of chest pain dyspnea. Isosorbide discontinued yesterday to allow for treatment with Entresto. Blood pressure was soft yesterday blood pressure acceptable through the yesterday evening and this morning. Exam Narrative: Awake alert. Appears stated age Const: General: comfortable and no acute distress HENMT: General nose exam: Normal nares present Other: Left-sided facial droop Eyes: Sclera: sclerae normal Neck: Neck: supple and no JVD Chest: Other: No reproducible chest wall pain to palpation. LifeVest in place. Resp: Auscultation: clear to auscultation bilaterally Cardio: Rate: regular rate Rhythm: regular rhythm Heart sounds: no murmurs GI: Auscultation: normal bowel sounds Skin: General skin exam: normal color Neuro: Cranial nerves: Yes Normal hearing present Cognition (Neuro): normal cognition Speech: normal speech Other: Left-sided facial droop as well as left-sided upper extremity weakness Extrem: General: normal to inspection and no edema Psych: Mental Status: mental status grossly normal Objective Data Vital Signs Vital Signs: Vital Signs - 24 hr 09/05/21 09:15 09/05/21 09:20 09/05/21 09:25 Temperature Pulse Rate 78 91 104 H Respiratory Rate Blood Pressure 125/64 114/82 93/71 L Pulse Oximetry 09/05/21 12:00 09/05/21 13:00 09/05/21 16:00 Temperature Pulse Rate 90 80 Respiratory Rate Blood Pressure 110/80 Pulse Oximetry 09/05/21 18:12 09/05/21 19:16 09/05/21 20:00 Temperature 36.3 C L 37.1 C 36.6 C Pulse Rate 78 69 65 Respiratory Rate 14 17 17 Blood Pressure 113/71 120/72 120/72 Pulse Oximetry 96 97 97 09/05/21 20:26 09/06/21 00:00 09/06/21 04:00 Temperature Pulse Rate 64 60 Respiratory Rate Blood Pressure 103/81 Pulse Oximetry 09/06/21 04:15 09/06/21 08:26 Temperature 36.4 C Pulse Rate 69 74 Respiratory Rate 16 Blood Pressure 151/65 H Pulse Oximetry 93 Intake/Output Intake/Output: Intake & Output 09/03/21 09/04/21 09/05/21 09/06/21 23:59 23:59 23:59 23:59 Intake Total 4230 3200 980 240 Output Total 1100 1475 1050 Balance 3130 1725 -70 240 Meds/Results Medications: Active Medications Generic Name Dose Route Start Last Admin Trade Name Freq PRN Reason Stop Dose Admin Acetaminophen 1,000 mg 09/01/21 20:13 09/05/21 20:24 Acetaminophen 500 Mg Tablet PO 1,000 mg Q6H PRN Administration Mild Pain (1-3) or Fever Apixaban 5 mg 09/01/21 21:00 09/06/21 08:26 Apixaban 5 Mg Tablet PO 5 mg Q12HR LANEY Administration Aspirin 81 mg 09/05/21
[2021-09-06] MEDS: ACETAMINOPHEN 500 MG TABLET 1000 MG PO (09:04)
--- NOTE | 2021-09-06 09:36 | PM.DS ---
DS: Admitting Diagnosis Discharge Date 09/06/21 Admitting Diagnosis Syncope DS: Discharge Diagnosis Discharge Diagnosis (1) Syncope and collapse: Code(s): R55 - Syncope and collapse Status: Acute Assessment and Plan: Patient briught in to the ED after having a syncopal episode with therapy. EKG showed sinus rhythm with first-degree AV block and intraventricular conduction delay. CT head showed old infarct in the right MCA and small old infarct in the left cerebellum along with chronic small-vessel ischemic disease. Carotid ultrasound showed less than 50% stenosis bilaterally. Chest x-ray showed no acute cardiopulmonary abnormalities. Echo showed intact interatrial septum and LVEF at 25-30%. Blood cultures show no growth today. BP soft with standing and Cardiology adjusted medications. Appreciate Cardiology input. Overall, syncope felt likely due to over exertion with significantly reduced EF and/or HoTN and/or arrhythmogenic secondary to ischemic cardiomyopathy. Discharge with LifeVest planned. Medications adjusted for his ischemic cardiomyopathy. BP improved. (2) Heart failure: Code(s): I50.9 - Heart failure, unspecified Status: Acute Assessment and Plan: Patient here for syncope as mentioned above. 09/02 Echo showed LVEF 25-30% left ventricular diastolic dysfunction basal inferior wall mid inferior wall, basal inferior septal, mid inferoseptal, basal inferior lateral wall, and mid inferior lateral wall are akinetic. Hypokinesis at the apex, anterior wall, anterior lateral wall. Moderate mitral valve regurg, mild tricuspid and pulmonic valve regurgitation. Intact interatrial septum. Cardiology consulted and medications were adjusted. [place] needed to rule out large area of reversible ischemia so Lexiscan ordered. 09/04 Lexiscan stress test showed mild reversible ischemia at the apical lateral and mid inferior lateral segments on the lateral margin of the larger fixed infarct involving the apex, apical lateral, mid inferior lateral, and apical to basilar inferior segments. Borderline left ventricular enlargement with global hypokinesis and LVEF of 20%. Low EF due to Ischemic Cardiomyopathy. TSH normal. Replaced electrolytes to keep Potassium >4.0 and Mag >2.0. Patient has chronic systolic and diastolic CHF without acute exacerbation. Medications were adjusted. Patient has been fitted for a LifeVest. 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 Coronary angiogram 2017 showed EF of 45% posterior basal akinesis as well as diaphragmatic akinesis with 30% left main, 30% proximal ramus, 50% large OM 2, total occlusion of the RCA with [id number] collaterals and diffuse LAD disease. Stress test as above. We continued aspirin, metoprolol and PCSK9 treatment. Imdur was held due to soft BP. (5) Afib: Qualifiers: Atrial fibrillation type: unspecified Qualified Code(s): I48.91 - Unspecified atrial fibrillation Code(s): I48.91 - Unspecified atrial fibrillation Status: Acute Assessment and Plan: Patient reportedly had a recent Holter monitor which showed paroxysmal atrial fibrillation. He is currently on Eliquis 5 mg p.o. b.i.d. Telemetry here showing that he maintained normal sinus rhythm. We continued Toprol and Eliquis. (6) Transaminitis: Code(s): R74.01 - Elevation of levels of liver transaminase levels Status: Acute Assessment and Plan: Elevated AST/ALT on admission. [place] related to hepatic congestion possibly. Hepatitis panel negative. Transaminases normalized. DS: Summary Hospital Course Reason for hospitaliza
[2021-09-06 10:42] LABS: EDCOVIDSCREEN Negative (Negative)
== END 2021-09-06 12:19 | DRG 312 ==
LOC: ANHED 15:44 → ANH2MED 16:27
PROVIDERS: General Practice; Nurse Practitioner; Student in an Organized Health Care Education/Training Program; Admitting Provider Internal Medicine; Emergency Provider Emergency Medicine; Visit Provider Internal Medicine
DX: R55 Syncope and collapse (principal); I69.354 Hemiplegia and hemiparesis following cerebral infarction affecting left non-dominant side; I50.42 Chronic combined systolic (congestive) and diastolic (congestive) heart failure; I25.5 Ischemic cardiomyopathy; I11.0 Hypertensive heart disease with heart failure; I95.9 Hypotension, unspecified; Z20.822 Contact with and (suspected) exposure to COVID-19; I48.0 Paroxysmal atrial fibrillation; I25.10 Atherosclerotic heart disease of native coronary artery without angina pectoris; R74.01 Elevation of levels of liver transaminase levels; F41.8 Other specified anxiety disorders; N40.0 Benign prostatic hyperplasia without lower urinary tract symptoms; K21.9 Gastro-esophageal reflux disease without esophagitis; E87.8 Other disorders of electrolyte and fluid balance, not elsewhere classified; G62.9 Polyneuropathy, unspecified; I69.392 Facial weakness following cerebral infarction; I25.2 Old myocardial infarction; Z79.01 Long term (current) use of anticoagulants
CPT/HCPCS: 36415; 70450; 71046; 78452; 80048; 80053; 80074; 81001; 83605; 83735; 84100; 84443; 85025; 85027; 85610; 85730; 86140; 87040; 87426; 93005; 93017; 93880; 96361; 96374; 97110; 97161; 97165; 97530; 97535; 99285; A4565; A9270; A9502; C8929; C9803; G0378; J2785; J3475; J7030; Q9957